=== PATIENT | male | born 1990 | race Caucasian/White ===

== ENCOUNTER 2022-05-14 13:02 | Emergency (ER) | payer BC ==
[~2022-05-14] VITALS: Ht 177.8 cm; Wt 72.6 kg
== END 2022-05-14 14:59 | disposition home or self-care (01) ==
LOC: ER 13:02
DX: S61.254A Open bite of right ring finger without damage to nail, initial encounter (principal); W57.XXXA Bitten or stung by nonvenomous insect and other nonvenomous arthropods, initial encounter; Y93.9 Activity, unspecified; Y92.9 Unspecified place or not applicable; Y99.9 Unspecified external cause status